=== PATIENT | female | born 1930 | race Caucasian/White ===

== ENCOUNTER 2017-04-17 14:57 | Inpatient (IN) | payer OTHER, MEDICARE ==
--- NOTE | ~2017-04-17 | H ---
[facility] [place] [address] HISTORY AND PHYSICAL Name: ROCIO FARIAS Room #: 349-I [facility] IN M.R.#: [id number] Admission: 04/17/17 Attend Phys: Raymon Ace MD Discharge: 04/19/17 Date of : [birth year] Report #: [id number] THIS REPORT FOR: //name// CC: Raymon Ace DATE OF SERVICE: 04/17/2017 See previous H&P dictation. ADDENDUM: ALLERGIES: Neomycin, Bacitracin, Polymyxin B, Brilinta. MEDICATIONS: Symbicort inhaler 80/4.5, Combivent inhaler, Lomotil p.r.n. irritable bowel and loose stools, Bystolic 5 mg daily for hypertension, pravastatin 40 mg for hyperlipidemia, levothyroxine 25 mcg for low thyroid, amlodipine 5 mg for hypertension, aspirin 81 mg, irbesartan 300 mg for hypertension, Nitrostat 0.4 as needed, cephalexin 500 mg 4 tablets before dental work, Tylenol, oxygen is supposed to be used continuously, Fosamax 70 mg once a week for osteoporosis (replaced risedronate). She does use oxygen 2 liters at night, and 2 liters walking to the dinning room. She doesn't use it at other times, despite the recomendation she do so, and the urging of her family. <ELECTRONICALLY SIGNED> By: Raymon Ace MD 06/08/17 1058 [id number] MD carter Marti
--- NOTE | ~2017-04-17 | H ---
[facility] [address] HISTORY AND PHYSICAL Name: ROCIO FARIAS [facility] Room #: 349-I [facility] IN M.R.#: [id number] Admission: 04/17/17 Attend Phys: Raymon Ace MD Discharge: 04/19/17 Date of : [birth year] Report #: [id number] THIS REPORT FOR: //name// CC: Raymon Ace DATE OF SERVICE: 04/17/2017 CHIEF COMPLAINT: Episode of significant confusion associated with pronounced shuffle in her gait, resolving, but not at baseline yet: TIA. HISTORY OF PRESENT ILLNESS: Last night at 9 p.m., the patient's kifnfhpf-ql-zbu was driving home from an event and telephoned her regarding upcoming events related to several season ticket series that the patient has. The patient seemed quite confused over the phone and was unable to keep the conversation on track regarding certain dates for certain series of performances. The next morning, her son went to see her in her independent living apartment at [facility] because of his concern. There, he found her confused, and her calendar for the different performances of the season ticket series had multiple entries that were crossed out as being incorrect or crossed out as having already occurred. This is very unusual for her. She was not able to retain information for as long as 30 seconds, and kept repeating questions incessantly. She was oriented to the time of day, day of the week, she recalled the people faces and names, and she knew that she was in her room at [place]. Her pronunciation of words was clear. Her gait was wider based and more shuffling than usual. She was unable to find a brown envelope and that was labeled season tickets and was sitting in the place where she usually keeps it in her apartment. This was 9 in the morning and because of his concern, he scheduled an appointment for later today. At about 1:00, the patient was seen in my office. Her son, Joe, was present and indicated that she had improved tremendously, but still was not back to her old self. She repeated questions frequently during the interview and the examination. She was anxious. She was able to get out of her chair with 2 bounces, and walk relatively smoothly to the exam room door, turn around, and go back and sit in the chair without much difficulty. Her gait was slightly wide based, and was at baseline for her. Throughout the exam, she repeated things, she repeated questions frequently. She also complained of the beginnings of a cold with the sore throat. Her past mental history is significant for an MRI scan with and without contrast performed a year ago that was normal for her age with appropriate or slightly exaggerated brain parenchyma volume loss associated with significant white matter and guzman matter microscopic ischemic changes. She has admitted every once in a while over the last 3 years at declining memory ability. Her son and qoizryra-tf-mjz have also noticed declining memory and cognitive function over [address] [address] HISTORY AND PHYSICAL Name: ROCIO FARIAS [facility] Room #: 349-I [facility] IN .R.#: [id number] Admission: 04/17/17 Attend Phys: Raymon Ace MD Discharge: 04/19/17 Date of : [birth year] Report #: [id number] the last several years, but decline they saw today was much greater. There is no previous history of stroke or neurological illness. PAST MEDICAL HISTORY: She had a cardiac catheterization and a drug-eluting stent placed in a totally occluded mid LAD on 10/15/2013. This stent relieved her angina. She was placed on Brilenta, which caused severe nose bleeding and a hospitalization. She was switched to aspirin and plavix therapy for 1 year, which she tolerated well. After the year the Plavix was stopped, and the baby aspirin continued. 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 Stress EKG showed no ischemia. There was a reversible perfusion defect in the LAD and the anterior and anterolateral segments. She has had right breast cancer, hypothyroidism, hypertension, history of melanoma, hyperlipidemia. December 22, 2008 vaginal hysterectomy/enterocele repair, pubic sling, right mastectomy 2006, melanoma removed in 08/2012. COPD and just recently exercise hypoxia. FAMILY HISTORY: Father in his 40s of an intracerebral haemorrhage, her mother had Parkinson's. Her paternal grandmother had bad heart history. One sister is healthy and 2 sons are healthy. There is no early coronary disease in her family. SOCIAL HISTORY: She lives in [facility] in the independent living side. She has never been a smoker. She has less than 1 drink a month and denies illicit drug use. She used to go to exercise classes at the [facility] 5 days a week, almost religiously, but over the last year, has gone seldom because of her various problems and problems exercising. She uses oxygen, when convient, because it does help reduce exercise breathlessness. However, the only time it is convient is the long walk from her appartment to the dinning room, and she pulls the oxygen bottle on its carly. She is more hypoxic today. She drinks coffee in the morning. She wishes a full code blue. PHYSICAL EXAMINATION: GENERAL: Shows an elderly 86-year-old female appearing her stated age. VITAL SIGNS: Her blood pressure was 169/69 with a pulse of 64. She complained of a sore throat, and indeed her posterior pharynx was just mildly irritated and uvula had very minimal edema present. The rest of the neck was negative. [facility] [address] [place] [address] HISTORY AND PHYSICAL Name: ROCIO FARIAS Room #: 349-I [facility] IN [facility].#: [id number] Admission: 04/17/17 Attend Phys: Raymon Ace MD Discharge: 04/19/17 Date of : [birth year] Report #: [id number] LUNGS: There are a few crackles in the right lung base when she takes a deep exhalation and lungs are clear. HEART: Tones are normal. ABDOMEN: Soft, nontender and is regular. NEUROLOGIC: There are no new focal deficits. She still asks frequent questions. Her gait is less shuffling. ASSESSMENT: 1. Episode of confusion from 9:00 last night, continuing overnight until 9:00 this morning, with steady improvement since then, but she has not quite reached baseline. In as much it is not quite yet 24 hours, she may hopefully fall into the category being a resolved transient ischemic attack, or perhaps a very small stroke. 2. Progressive hypoxia and currently requires 2-3 liters of oxygen continually, especially while exercising. 3. Chronic obstructive pulmonary disease. 4. Stable coronary artery disease. 5. Toxic encephalopathy. 6. Abnormal UA 7. CAD 8. HTN 9. Hyperlipidemia 10. Small AAA 11. Breast cancer 12. Irritable bowel - prn lomotil 13. Osteoporosis. PLAN: The patient is admitted. She will be given hydralazine as needed for elevated blood pressures. MRI and workup for a stroke will be done. Neurology consultation. She might improve if she uses her oxygen more. Plavix will be added to her aspirin See dictated addendum for medication list. <ELECTRONICALLY SIGNED> By: Raymon Ace MD 06/08/17 1058 [id number] Raymon Ace MD /nt
--- NOTE | ~2017-04-17 | HC ---
[facility] [place] [address] CONSULTATION Name: ROCIO FARIAS Room #: 349-I [facility] IN .R.#: [id number] Admission: 04/17/17 Attend Phys: Raymon Ace MD Discharge: 04/19/17 Date of : [birth year] Report #: [id number] THIS REPORT FOR: //name// CC: Raymon Ace DATE OF SERVICE: 04/18/2017 HISTORY OF PRESENT ILLNESS: This is an 86-year-old female patient whose history is not very clear. She said she lives in independent living. Her calendar was messed up and the son came and got worried that she was having confusion and brought her to the hospital. There was no focal neurological deficit which was noticed. She thinks she is at her baseline. Her confusion was moderate and she remembers about that. 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 This patient had slow decline in the cognition for several years and she had some cough. I carried out 14-point review of system. Rest of the 14-point review of system otherwise looks mostly unremarkable. PAST MEDICAL HISTORY: Positive for Lala's palsy. FAMILY HISTORY: Negative for early age stroke. SOCIAL HISTORY: She does not drink any alcohol or smoke. PHYSICAL EXAMINATION: Indicate she is alert. She is responsive. She can follow commands. She knows what month it is. She did not know what day it is. She could not name the hospital, so memory is impaired. Speech looks intact. Cranial nerve examination 2-12 looks mostly unremarkable. She does have some ptosis on the right side, but she said that is because of Lala's palsy. She has symmetrical strength, sensation, reflexes and tones in all 4 extremities. I could not look at the fundus. There is no cerebellar sign. She is moderately built individual who does not have any dysmorphic features of eyes, ears and face except what she has described as Lala's palsy. Her hearing and vision looks adequate. Cardiac examination is mostly unremarkable. No respiratory difficulty or rhonchi. Pulses are palpable. There is no edema, cyanosis or jaundice. Blood pressure is 177/80, respirations 18, pulse is 51, temperature is 97.8. LABORATORY DATA: White count is 6.6. She did an MRI and carotid Doppler that appear unremarkable. IMPRESSION: It is possible this patient is developing mild cognitive impairment or early dementia. She does have some memory disturbances. It is not very pronounced but it is there. With a negative workup, TIA or CVA is unlikely. [facility] [address] [place] [address] CONSULTATION Name: ROCIO FARIAS Room #: 349-I [facility]#: [id number] Admission: 04/17/17 Attend Phys: Raymon Ace MD Discharge: 04/19/17 Date of : [birth year] Report #: [id number] RECOMMENDATIONS: 1. I will suggest formal neuropsychological testing by neuropsychologist. 2. Aspirin, which she is already on. 3. Her LDL is 99 and she can be given statin. 4. She is scheduled for echocardiogram. We will see what it shows. I will also get an EEG done in this patient and I will talk to you tomorrow and look at these testing and decide about further management. Thank you very much for this referral. <ELECTRONICALLY SIGNED> By: Juan A Thompson MD 04/30/172008 [id number] Juan A Thompson MD /nt
--- NOTE | ~2017-04-17 | EEG ---
[facility] [place] [address] ELECTROENCEPHALOGRAM Name: ROCIO FARIAS Room #: 349-I [facility] IN M.R.#: [id number] Admission: 04/17/17 Attend Phys: Raymon Ace MD Discharge: 04/19/17 Date of : [birth year] Report #: [id number] THIS REPORT FOR: //name// CC: Raymon Ace DATE OF SERVICE: 04/19/2017 This patient had episode of altered mental status. EEG was done by placing the electrodes by standard 10-20 system of electrode placement. Both referential and sequential montages were used for recording. Background activity in this patient's EEG is about 11 Hz and 50 microvolts. This patient became drowsy that is associated with bilateral slowing and a few vertex sharp waves. Photic stimulation is unremarkable. Throughout the record, no active epileptiform activity was noted. IMPRESSION: This patient's EEG is within normal limits. Thank you very much for this referral. <ELECTRONICALLY SIGNED> By: Juan A Thompson MD 04/30/172010 21 38 Juan A Thompson MD /nt
--- NOTE | ~2017-04-17 | D ---
[facility] [place] [address] DISCHARGE SUMMARY Name: ROCIO FARIAS [facility] Room #: 349-I [facility] IN M.R.#: [id number] Admission: 04/17/17 Attend Phys: Raymon Ace MD Discharge: 04/19/17 Date of : [birth year] Report #: [id number] THIS REPORT FOR: //name// CC: Raymon Ace DATE OF SERVICE: 04/19/2017 SUMMARY OF HISTORY AND PHYSICAL: The patient was brought to the office by her son with a history that began in the evening of 04/16/2017. She was confused on the telephone and unable to keep track regarding certain dates for certain series of performances and a schedule for which she has season tickets. The next morning, her son went to see her in her apartment and found her confused with multiple entries in her calendar for different performances being crossed out or being incorrectly entered or being crossed out as having already occurred, when in fact they had not. She seemed unable to retain information for as long as 30 seconds and kept asking the same questions over and over again within 30 seconds or a minute after having been given the answer. She was oriented to the time of day and the day of the week and recalled people's faces and names and knew that she was in her room at [place]. Her pronunciation of words was clear. Her gait was wider based and more shuffling than usual. There was a large brown envelope in clear sight on a specific table, labeled "season tickets" and was sitting in the place where she usually keeps it in her apartment. She was unable to find it and he watched her search the apartment for it. Because of his concern, he brought her to the office where indeed her short-term memory was markedly impaired. She was seen about 01:00 in the afternoon and she had improved tremendously, but her short-term memory was still not back to baseline. She was admitted out of a concern that she had experienced a stroke or a TIA. She also reported the beginning of a cold with a sore throat. SUMMARY OF HOSPITAL COURSE: She was admitted and seen in Neurology consultation by Dr. Thompson. He was unable to obtain an accurate history. He noted that she was unable to name the hospital and did not know what the date was, but she did note what month it was. He did not find any focal neurological deficits, other than the dysmorphic features of her face that has been attributed to Lala's palsy. He reviewed her MRI and carotid Doppler and described them as "unremarkable". He thought that with a negative evaluation, a TIA or a CVA was unlikely. He did note that she had some memory disturbances and thought that she might be developing a mild cognitive impairment or early dementia. His recommendations were for formal neuropsychological testing; aspirin, which he noted she was already taking; that she be given a statin for an LDL of 99 and he was going to check on the echocardiogram. He also ordered an EEG, which was normal. The patient continued to ask many questions and continued to have impaired [address] [address] DISCHARGE SUMMARY Name: ROCIO FARIAS Room #: 349-I [facility] IN M.R.#: [id number] Admission: 04/17/17 Attend Phys: Raymon Ace MD Discharge: 04/19/17 Date of : [birth year] Report #: [id number] short-term memory, according to the nursing staff. She remained very upset with being in the hospital and unfortunately, I am sure her anxiety made her short-term memory even worse. Plavix was instituted in place of aspirin, because she had been on aspirin for some years at the time she was admitted. Further history from the son indicated a slow decline in memory over time, but a dramatic loss since 04/16/2017. On the day of discharge, her nurse reported her short-term memory had improved slightly; that the patient was able to recognize that particular nurse by her Southern accent, but still unable to recall her name. Interestingly enough, on the day of discharge, she was so anxious about being in the hospital and so anxious to leave the hospital that at 01:00 in the morning she got out of bed and put her street clothes on and spent the rest of the night awake in a chair watching television, eagerly anticipating her discharge. SUMMARY OF LABORATORY DATA: Electrolytes were normal: Sodium 141, potassium 4.2, chloride 105 and CO2 at 29. BUN 20 on admission, which dropped to 12 after IV fluids; creatinine of 0.7, that remained unchanged and a glucose of 104. Albumin was 3.4 and AST was low at 20. EGFR was calculated at 95, and when repeated, it was 79. Free T4 was normal at 1.1, TSH at 2.332, folate at 12.9 and vitamin B12 was in the low normal range at 318. White count was 8300 and hemoglobin was 13.8 and hematocrit 41.6 with a normal differential. Urinalysis showed a trace of glucose and blood and culture grew 20,000 CFU of normal genital urethral kraig. The respiratory therapist ran came at a time when she did not have her oxygen on. Her pH was 7.42, pCO2 was 36.4 and pO2 was mildly low at 63.2, with a measured saturation of 91.4. Ultrasound of the carotids showed mild plaquing on both the right and left carotid systems and no significant stenosis of any of the major carotid arteries (less than 50%). Chest x-ray showed interstitial fibrosis throughout the lung jorge and was unchanged from 06/23/2014. Old compression deformities of the lower thoracic spine were unchanged. Mild cardiomegaly was present. MRI of the head with and without contrast was compared to a study by similar technique, 05/17/2016: Bjavmyfw-ci-uuaeyo scattered and confluent unchanged signal abnormalities in the periventricular white matter, suggesting chronic microvascular ischemia. A small right maxillary sinus mucus retention cyst was seen. Minimal left mastoid air cell fluid was seen. There was no evidence of [facility] [address] [place] [address] DISCHARGE SUMMARY Name: ROCIO FARIAS [facility] Room #: 349-I [facility] IN ..#: [id number] Admission: 04/17/17 Attend Phys: Raymon Ace MD Discharge: 04/19/17 Date of : [birth year] Report #: [id number] significant change and there is no evidence of an acute stroke event. ASSESSMENT: Cognition was evaluated by the speech therapist, showing 80% to 89% verbal and nonverbal expression. Cognitive linguistic scales were qssg-ti-gefzroympc impaired, 50% to 69%, with an MoCA score of 19/30, with normal being 26-30, showing moderate deficits. Poor scoring in the memory section greatly impacted her total score. She had decreased attention to details of tasks, speed of processing, organization sequencing of tasks and steps, reasoning/problem solving, insight into her deficits, safety awareness and judgement and visual spatial. Close supervision was recommended because of her impaired self-awareness and safety judgement deficits. She had a moderate, 50% to 69%, memory recall skills, were xfnvcsmczd-gx-tijwpxfm impaired. She was defensive about her cognitive deficits and lacked insight to their severity. She still told the speech therapist that she desperately wanted to go home, but she also told the speech therapist that she did not know why she was in the hospital. DISCHARGE DIAGNOSES: 1. 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 Otherwise, she is stable. 2. Chronic obstructive pulmonary disease with fibrosis. Oxygenation was better in the hospital than ordinarily when tested in the office. Oxygen saturations were diminished at around 86 in the office on room air prior to coming to the hospital. 3. Right breast cancer and right cancer mastectomy. 4. Parathyroid surgery history. 5. Right corneal erosion. 6. Distant right-sided Lala's palsy. 7. Hypertension. 8. Basal cell cancer of the face. 9. History of melanoma of the back with local and regional lymph node dissection. 10. Asymptomatic coronary artery disease, status post stent. 11. Diet-controlled diabetes with good control. 12. Mildly elevated BUN, indicating mild volume depletion. 13. Cardiac stent, 07/18/2011. 14. Bilateral rotator cuff shoulder injuries and weakness. 15. Clinically, she appears depressed, although she denies it. PLAN: She is returning home with the new medication, clopidogrel (Plavix) 75 mg daily. She took this medication for a year after her cardiac stent, 07/18/2011, without problems. It is expected she could take it again without difficulty. She is to continue pravastatin 40 mg at bedtime, amlodipine 5 mg daily, sodium [facility] [address] [place] [address] DISCHARGE SUMMARY Name: ROCIO FARIAS Room #: 349-I [facility] IN [place]#: [id number] Admission: 04/17/17 Attend Phys: Raymon Ace MD Discharge: 04/19/17 Date of : [birth year] Report #: [id number] Madeline-128 ophthalmic ointment, carboxymethylcellulose sodium (Refresh Celluvisc) one daily in both eyes at bedtime, Symbicort 80/4.5 two puffs twice daily, Tears Naturale Free drops 1 drop in each eye as directed, nebivolol 5 mg once daily for hypertension, nitroglycerin tablets sublingually as needed for chest pain and acetaminophen 325 mg 2 pills every 4 hours as needed for pain. Ipratropium/albuterol by nebulizer 2-4 times a day for pulmonary fibrosis. She remains on levothyroxine. She remains on an order for 2-3 liters of oxygen continuously to be supplied by portable device. Home health to assist with speech and cognitive therapy. She is to come to my office in a week and bring all of her medications with her. <ELECTRONICALLY SIGNED> By: Raymon Ace MD 06/08/17 1058 2230 0042 Raymon Ace MD /nt
--- NOTE | ~2017-04-17 | 2DMMODE ---
[facility] [employer] [place] [address] 2 D/M-MODE ECHOCARDIOGRAM Name: JARRETTROCIO Room #: 349-I [facility].#: [id number] Admission: 04/17/17 Attend Phys: Raymon Ace, Discharge: Date of : [birth year] Date of Service: 04/18/17 [facility] Report #: [id number] THIS REPORT FOR: //name// APPROVED REPORT Study performed: 04/18/2017 08:31:30 EXAM: Comprehensive 2D, Doppler, and color-flow Echocardiogram Patient Location: Echo lab Room #: 349 BSA: 1.55 HR: 55 bpm BP: 176/65 mmHg Rhythm: NSR/PVCS Other Information Study Quality: Adequate Indications CVA/TIA Echo Enhancing Agent Indication: Rule out Shunt Agent(s) / Amount(s) Used: Agitated Saline 6 cc 2D Dimensions RVDd: 27.30 mm LVEF(%): 61.75 (>50%) IVSd: 10.42 (7-11mm) LVOT Diam: 18.79 (18-24mm) LVDd: 53.07 mm PWd: 7.89 (7-11mm) Ascending Ao: 34.55 (22-36mm) LVDs: 35.30 (25-40mm) Aortic Root: 36.69 mm Sylvester's LVEF: 61.75 % Volumes Left Atrial Volume (Systole) Single Plane 4CH: 61.73 mL Single Plane 2CH: 53.98 mL LA ESV Index: 40.00 mL/m2 Aortic Valve AoV Peak Mio.: 2.48 m/s AO Peak Gr.: 24.59 mmHg LVOT Max P.12 mmHg AO Mean Gr.: 12.84 mmHg AO V2 Mean: 1.70 m/s LVOT Max V: 1.33 m/s [facility] [employer] [place] [address] 2 D/M-MODE ECHOCARDIOGRAM Name: ROCIO FARIAS Room #: 349-I [facility].#: [id number] Admission: 04/17/17 Attend Phys: Raymon Ace, Discharge: Date of : [birth year] Date of Service: 04/18/17 [facility] Report #: [id number] AO V2 VTI: 55.64 cm PAULETTE Vmax: 1.49 cm2 AI Vmax: 4.63 m/s AI Fajardo: 2.21 m/s2 AI PHT: 608.83 ms Mitral Valve E/A Ratio: 0.5 MV Decel. Time: 418.62 ms MV E Max Mio.: 0.83 m/s MV A Mio.: 1.60 m/s MV PHT: 121.40 ms IVRT: 119.95 ms Pulmonary Valve PV Peak Mio.: 0.95 m/s PV Peak Gr.: 3.59 mmHg Tricuspid Valve TR Peak Mio.: 2.86 m/s RAP Estimate: 5.00 mmHg TR Peak Gr.: 32.68 mmHg PA Pressure: 38.00 mmHg Left Ventricle The left ventricle is normal size. There is normal LV segmental wall motion. Moderate basal septal hypertrophy is present. Left ventricular systolic function is normal. LVEF is 55-60%. Mild diastolic dysfunction is present (impaired relaxation pattern). Right Ventricle The right ventricle is normal size. The right ventricular systolic function is normal. Atria Left atrium is mildly dilated. No shunting noted by contrast bubble injection. The right atrium size is normal. Aortic Valve Aortic valve is calcified. Mild aortic regurgitation. There is mild valvular aortic stenosis. Calculated aortic valve area is 1.5 cm2 with maximum pressure gradient of 25 mmHg and mean pressure gradient of 13 mmHg. Mitral Valve Mitral valve leaflets are mildly thickened and calcified. Moderate mitral annular calcification. Trace mitral [id number] [id number] 2 D/M-MODE ECHOCARDIOGRAM Name: ROCIO FARIAS Room #: 349-I [facility]#: [id number] Admission: 04/17/17 Attend Phys: Raymon Ace, Discharge: Date of : [birth year] Date of Service: 04/18/17 [facility] Report #: [id number] of mitral valve stenosis. Tricuspid Valve The tricuspid valve is normal in structure. Mild tricuspid regurgitation. Estimated PAP is 35-40mmHg. Pulmonic Valve The pulmonary valve is normal in structure. Trace pulmonic regurgitation. Great Vessels The aortic root is normal in size. The ascending aorta is normal in size. IVC is normal in size and collapses >50% with inspiration. Pericardium There is no pericardial effusion. <Conclusion> The left ventricle is normal size. LVEF is 55-60%. Left atrium is mildly dilated. Aortic valve is calcified poorly characterized does not appear to be vegetatation clinical correlation suggested. Mild aortic regurgitation. The tricuspid valve is normal in structure. Mild tricuspid regurgitation. Estimated PAP is 35-40mmHg. The pulmonary valve is normal in structure. Trace pulmonic regurgitation. There is no pericardial effusion. No shunting noted by contrast bubble injection. <ELECTRONICALLY SIGNED> By: Beau Camilo MD 04/18/17 1037 [id number] Beau Camilo MD /INF
[~2017-04-17 14:57] MED LIST: ACCUNEB SO1.25 MG/1; AMOXICILLIN 50500 MG PO; APAP500 PO; ASPIR 8181 MG PO; ASPIRIN EC81 M1 PO; BRILINTA90 MG PO; BYSTOLIC 5 MG5 M1 PO; BYSTOLIC2.5 MG PO; COLACE100 MG PO; CRESTOR10 MG PO; DUONEB 2.5-0.5 M3 ML INH; FAMOTIDINE 10 M10 MG PO; FENTANYL PA50 MCG/HR TRANSDERM; FORTEO750 MCG/3 SUBQ; IMDUR 30 MG TAB30 M1 PO; IMDUR 60 MG TAB60 M1 PO; IMDUR120 MG; IPRAT-ALBUT 0.5-3 ML IH; KEFLEX500 M1 PO; KEFLEX500 MG PO; LEVAQUIN 500 M500 M2 PO; LEVOTHROID100 MC1 PO; LEVOTHYROXINE 0.1 MG PO; LEXAPRO5 MG PO; LISINOPRIL20 MG PO; LISINOPRIL40 MG PO; LOMOTIL TABLET1 EACH PO; MAALOX525 MG/15 PO; MURO-128 OPHTH3.5 G1; MURO-128 OPHTH3.5 G1 OP; NITROSTAT0.4 MG SL; NITROSTAT0.4 MG SUBLING; NOLVADEX10 MG; NOLVADEX20 MG PO; NORCO 5-325 TA1 EACH PO; NORVASC2.5 MG PO; NORVASC5 MG PO; PERCOCET PO; PHENERGAN12.5 M2 RC; PLAVIX 75 MG TA75 M1 PO; PRAVACHOL40 MG PO; PROCARDIA XL30 MG PO; PROTONIX40 M2 PO; REFRESH CELLUVI1 APP OPHTHALMIC; SENOKOT-S1 TA1 PO; SYMBICORT160 MCG/4. INH; SYMBICORT80 MCG/4.1 INH; SYNTHROID50 MCG; TEARS NATURALE1 EACH OPHTHALMIC; TYLENOL325 MG PO; ZOCOR40 MG; accupril
[2017-04-17 16:22] LABS: ABSOLUTE NEUTROPHILS 5.9 thou/uL (1.4-8.2); BASOPHILS 0.7 % (0.0-2.0); EOSINOPHILS 2.5 % (0.0-3.0); HEMATOCRIT 41.6 % (37.0-47.0); HEMOGLOBIN 13.8 gm/dL (12.0-15.0); LYMPHOCYTES 15.7 % (24.0-44.0); MCH 28.4 pg (26.0-34.0); MCHC 33.1 g/dL (28.0-37.0); MONOCYTES 10.8 % (1.0-8.0); PLATELET COUNT 262 thou/uL (150-400); POLYS 70.3 % (36.0-66.0); RBC 4.84 mil/uL (4.20-5.00); WBC 8.3 thou/uL (4.0-11.0)
[2017-04-17 16:39] LABS: ALBUMIN 3.6 g/dL (3.4-5.0); CALCIUM 10.3 mg/dL (8.5-10.1); CREATININE 0.6 mg/dL (0.6-1.0); POTASSIUM 4.3 mmol/L (3.5-5.1); TOTAL PROTEIN 7.5 g/dL (6.4-8.2)
[2017-04-17] MEDS ORDERED: BYSTOLIC 5 MG5 M1 PO (16:42)
[2017-04-17 19:28] LABS: BE(vivo) -0.7 mmol/L (-2 to +3); HCO3 23.3 mmol/L (22.0-26.0); PCO2 36.4 mmHg (35.0-45.0); PO2 63.2 mmHg (80.0-100.0); pH 7.424 (7.360-7.450); sO2 92.8 % (92.0-98.0)
[2017-04-17] MEDS ORDERED: ASPIR 8181 MG PO (19:59)
[2017-04-17] MEDS ORDERED: SYNTHROID50 MCG PO (20:00)
[2017-04-17] MEDS ORDERED: TYLENOL325 MG PO (20:03)
[2017-04-17] MEDS ORDERED: NITROGLYCERIN0.4 MG SUBLING (20:03)
[2017-04-17 20:21] VITALS: BP 165/81
[2017-04-17 21:25] LABS: URINE BILIRUBIN NEGATIVE (Negative); URINE BLOOD 1+ (Negative); URINE CLARITY CLEAR; URINE COLOR YELLOW; URINE GLUCOSE-RANDOM* 2+ (Negative); URINE KETONES NEGATIVE (Negative); URINE LEUKOCYTES-REFLEX NEGATIVE (Negative); URINE NITRITE-REFLEX NEGATIVE (Negative); URINE PROTEIN (DIPSTICK) NEGATIVE (Negative); URINE SPECIFIC GRAVITY 1.015 (1.005-1.035); URINE UROBILINOGEN 0.2 E.U./dl (0.2-1.0)
[2017-04-17 21:32] LABS: CASTS None Seen /LPF (None Seen); MUCUS None Seen strn/LPF (None Seen); SQUAMOUS 0-3 Few /LPF (0-3); URINE RBC 3-10 Few /HPF (0-2); URINE WBC-REFLEX 0-5 Rare /HPF (0-5)
[2017-04-17 21:33] LABS: BACTERIA-REFLEX 1-9 Few /HPF (None Seen); CRYSTALS None Seen /LPF (None Seen); WBC CLUMPS Occasional (None Seen)
[2017-04-17 23:41] VITALS: BP 148/81
[2017-04-18 03:16] VITALS: BP 136/51
[2017-04-18 06:58] VITALS: BP 176/65
[2017-04-18 07:05] LABS: HEMATOCRIT 41.3 % (37.0-47.0); HEMOGLOBIN 13.6 gm/dL (12.0-15.0); MCH 28.4 pg (26.0-34.0); RBC 4.8 mil/uL (4.20-5.00); RDW 14.5 % (10.5-14.5); WBC 6.6 thou/uL (4.0-11.0)
[2017-04-18 07:25] LABS: ALBUMIN 3.4 g/dL (3.4-5.0); CALCIUM 9.8 mg/dL (8.5-10.1); CREATININE 0.7 mg/dL (0.6-1.0); POTASSIUM 4.2 mmol/L (3.5-5.1); TOTAL BILIRUBIN 1.5 mg/dL (<0.1-1.0); TOTAL PROTEIN 7.3 g/dL (6.4-8.2)
[2017-04-18 07:58] LABS: FOLIC ACID 12.9 ng/mL (8.6-58.9); TSH 2.332 uIU/mL (0.358-3.740)
[2017-04-18 12:16] VITALS: BP 154/72
[2017-04-18 16:12] VITALS: BP 177/80
[2017-04-18 19:20] VITALS: BP 159/65
[2017-04-19 04:40] VITALS: BP 150/78
[2017-04-19 07:33] VITALS: BP 172/87
[2017-04-19] MEDS ORDERED: CLOPIDOGREL75 MG PO (09:53)
[2017-04-19 11:08] VITALS: BP 172/87
[2017-04-19 11:09] VITALS: BP 172/87
== END 2017-04-19 12:15 | disposition home health service (06) | DRG 64 ==
LOC: 3W 14:57
PROVIDERS: Internal Medicine
DX: I63.9 Cerebral infarction, unspecified (principal); G92 Toxic encephalopathy; I25.10 Atherosclerotic heart disease of native coronary artery without angina pectoris; E86.0 Dehydration; E03.9 Hypothyroidism, unspecified; I10 Essential (primary) hypertension; E78.5 Hyperlipidemia, unspecified; J44.9 Chronic obstructive pulmonary disease, unspecified; I71.4 Abdominal aortic aneurysm, without rupture; M81.0 Age-related osteoporosis without current pathological fracture; Z88.1 Allergy status to other antibiotic agents; Z85.3 Personal history of malignant neoplasm of breast; Z90.710 Acquired absence of both cervix and uterus; Z88.8 Allergy status to other drugs, medicaments and biological substances; Z90.11 Acquired absence of right breast and nipple; Z81.8 Family history of other mental and behavioral disorders; Z82.49 Family history of ischemic heart disease and other diseases of the circulatory system
CPT/HCPCS: 10879

== ENCOUNTER → 2017-12-19 | Outpatient (CLI) | payer OTHER, MEDICARE ==
[~2017-12-19] MED LIST changes: +CLOPIDOGREL75 MG PO; +NITROGLYCERIN0.4 MG SUBLING; +SYNTHROID50 MCG PO
== END ==
LOC: ULTRA 16:03
DX: M17.12 Unilateral primary osteoarthritis, left knee (principal); M76.52 Patellar tendinitis, left knee; M79.89 Other specified soft tissue disorders; I25.10 Atherosclerotic heart disease of native coronary artery without angina pectoris; I10 Essential (primary) hypertension; E11.9 Type 2 diabetes mellitus without complications; E78.00 Pure hypercholesterolemia, unspecified; E03.9 Hypothyroidism, unspecified

== ENCOUNTER 2018-04-11 11:47 | Emergency (ER) | payer OTHER, MEDICARE ==
[~2018-04-11] VITALS: Ht 152.4 cm; Wt 70.3 kg
[2018-04-11 12:59] LABS: ABSOLUTE NEUTROPHILS 5.7 thou/uL (1.4-8.2); BASOPHILS 0.4 % (0.0-2.0); EOSINOPHILS 1.4 % (0.0-3.0); HEMATOCRIT 42.1 % (37.0-47.0); HEMOGLOBIN 14.2 gm/dL (12.0-15.0); LYMPHOCYTES 17.7 % (24.0-44.0); MCH 29.2 pg (26.0-34.0); MCHC 33.8 g/dL (28.0-37.0); MCV 86.3 fL (80.0-100.0); MONOCYTES 8.5 % (1.0-8.0); PLATELET COUNT 230 thou/uL (150-400); RBC 4.89 mil/uL (4.20-5.00); RDW 14.5 % (10.5-14.5); WBC 7.9 thou/uL (4.0-11.0)
[2018-04-11 13:07] LABS: ANION GAP 8 mmol/L (7-16); BUN 13 mg/dL (7-18); CALCIUM 9.9 mg/dL (8.5-10.1); CHLORIDE 101 mmol/L (98-107); CO2 28 mmol/L (21-32); CREATININE 0.7 mg/dL (0.6-1.0); GLUCOSE 167 mg/dL (74-106); POTASSIUM 3.9 mmol/L (3.5-5.1); SODIUM 137 mmol/L (136-145)
[2018-04-11 13:09] LABS: URINE BILIRUBIN NEGATIVE (Negative); URINE BLOOD TRACE (Negative); URINE CLARITY CLEAR; URINE COLOR YELLOW; URINE GLUCOSE-RANDOM* NEGATIVE (Negative); URINE KETONES NEGATIVE (Negative); URINE LEUKOCYTES-REFLEX NEGATIVE (Negative); URINE NITRITE-REFLEX NEGATIVE (Negative); URINE PROTEIN (DIPSTICK) NEGATIVE (Negative); URINE UROBILINOGEN 0.2 E.U./dl (0.2-1.0)
[2018-04-11 13:16] LABS: TROPONIN-I <0.06 ng/mL (<0.06)
[2018-04-11] MEDS ORDERED: TYLENOL325 M1 PO (14:44)
[2018-04-11] MEDS ORDERED: ULTRAM 50MG TAB50 MG PO (14:44)
[2018-04-11] MEDS ORDERED: IMODIUM A-D2 MG PO (15:04)
[2018-04-11 15:16] VITALS: BP 143/67
--- NOTE | 2018-04-12 11:58 | EKG ---
[facility] [place] [place] [address] ELECTROCARDIOGRAM REPORT Name: ROCIO FARIAS [facility] Room #: [facility]#: [id number] Admission: 04/11/18 Attend Phys: Discharge: 04/11/18 Date of : [birth year] Report #: [id number] THIS REPORT FOR: //name// [facility] ED Test Date: 2018-04-11 Test Time: 12:11:45 Pat Name: ROCIO FARIAS Department: Room: Gender: F Battery Technician: : [id number] Requested By: Hector Magana Order Number: [id number] MD: Glen Chamorro Measurements Intervals [place] Rate: 73 P: 2 OK: 249 QRS: -31 QRSD: 85 T: 33 QT: 399 QTc: 440 Interpretive Statements Sinus rhythm Prolonged OK interval Left atrial enlargement Abnormal R-wave progression, late transition Left ventricular hypertrophy Compared to ECG 06/23/2014 21:46:36 No significant change was found Electronically Signed On 04-12-2018 11:58:50 [employer] by Glen Chamorro [email or web address] <ELECTRONICALLY SIGNED> By: Glen Chamorro MD, [facility] 04/12/18 1158 121 10 Glen Chamorro MD, [facility] /EPI
== END 2018-04-11 15:18 ==
LOC: ER 11:47
PROVIDERS: Emergency Medicine
DX: S70.01XA Contusion of right hip, initial encounter (principal); S70.11XA Contusion of right thigh, initial encounter; R42 Dizziness and giddiness; I10 Essential (primary) hypertension; E11.9 Type 2 diabetes mellitus without complications; E78.00 Pure hypercholesterolemia, unspecified; F03.90 Unspecified dementia, unspecified severity, without behavioral disturbance, psychotic disturbance, mood disturbance, and anxiety; Z85.3 Personal history of malignant neoplasm of breast; Z85.828 Personal history of other malignant neoplasm of skin; E89.0 Postprocedural hypothyroidism; Z88.8 Allergy status to other drugs, medicaments and biological substances; W18.30XA Fall on same level, unspecified, initial encounter; Y93.89 Activity, other specified; Y92.89 Other specified places as the place of occurrence of the external cause; Y99.8 Other external cause status